=== PATIENT | female | born 1995 ===

== ENCOUNTER 2022-01-02 09:05 | Inpatient (IN) | payer OTHER ==
[2022-01-02] MEDS ORDERED: HOME MED LIST COMPLETE! XX SCH (12:40)
[2022-01-02] MEDS ORDERED: traZODone 50 MG TAB PO PRN (13:35)
[2022-01-02] MEDS ORDERED: MAALOX 30 ML SUSP *UDC PO PRN (13:35)
[2022-01-02] MEDS ORDERED: ACETAMINOPHEN TAB 650MG DOSE (2X325MG) PO PRN (13:35)
[2022-01-02] MEDS ORDERED: MOM 30ML SUSPENSION UDC PO PRN (13:35)
[2022-01-02 15:19] VITALS: BP 131/84
[2022-01-03 06:07] VITALS: BP 141/87
[2022-01-03] MEDS: VITAMIN D 1,000 INTERNATIONAL UNITS TABLET PO SCH (14:17)
[2022-01-03 18:00] VITALS: BP 133/77
[2022-01-03] MEDS: RAMELTEON 8 MG TAB (ROZEREM) PO SCH (21:53)
[2022-01-04 06:08] VITALS: BP 117/62
[2022-01-04] MEDS: VITAMIN D 1,000 INTERNATIONAL UNITS TABLET PO SCH (08:21)
[2022-01-04 11:10] LABS: CHOLESTEROL RISK RATIO 3.3 (<5)
[2022-01-04] MEDS ORDERED: CALCIUM CARBONATE 500 MG CHEW U/D PO PRN (11:25)
[2022-01-04 11:40] LABS: HEMOGLOBIN A1c 5.2 %
[2022-01-04] MEDS ORDERED: ALBUTEROL 90 MCG/ACT 8GM HFA INHALER INH PRN (12:20)
[2022-01-04 18:20] VITALS: BP 120/74
[2022-01-04] MEDS ORDERED: traZODone 50 MG TAB PO SCH (21:00)
[2022-01-04] MEDS: RAMELTEON 8 MG TAB (ROZEREM) PO SCH (21:14)
[2022-01-04] MEDS: ARIPiprazole 10 MG TAB PO SCH (21:14)
[2022-01-05 07:17] VITALS: BP 148/73
[2022-01-05] MEDS: VITAMIN D 1,000 INTERNATIONAL UNITS TABLET PO SCH (08:33)
[2022-01-05 18:45] VITALS: BP 118/66
[2022-01-05] MEDS: ARIPiprazole 10 MG TAB PO SCH (20:53)
[2022-01-05] MEDS: traZODone 50 MG TAB PO SCH (20:54)
[2022-01-05] MEDS: RAMELTEON 8 MG TAB (ROZEREM) PO SCH (20:55)
[2022-01-06 06:22] VITALS: BP 122/79
[2022-01-06] MEDS: VITAMIN D 1,000 INTERNATIONAL UNITS TABLET PO SCH (08:12)
[2022-01-06 18:21] VITALS: BP 123/89
[2022-01-06] MEDS: ARIPiprazole 10 MG TAB PO SCH (20:55)
[2022-01-06] MEDS: RAMELTEON 8 MG TAB (ROZEREM) PO SCH (20:55)
[2022-01-06] MEDS: traZODone 50 MG TAB PO SCH (20:55)
[2022-01-07 06:16] VITALS: BP 110/57
[2022-01-07] MEDS: VITAMIN D 1,000 INTERNATIONAL UNITS TABLET PO SCH (08:29)
[2022-01-07] MEDS ORDERED: DOCUSATE SODIUM 100MG CAPSULE PO PRN (11:45)
[2022-01-07] MEDS: DOCUSATE SODIUM 100MG CAPSULE PO PRN (12:19)
[2022-01-07 16:41] VITALS: BP 106/75
[2022-01-07] MEDS: ARIPiprazole 10 MG TAB PO SCH (20:54)
[2022-01-07] MEDS: RAMELTEON 8 MG TAB (ROZEREM) PO SCH (20:54)
[2022-01-07] MEDS: traZODone 50 MG TAB PO SCH (20:54)
[2022-01-08 06:10] VITALS: BP 129/63
[2022-01-08] MEDS: VITAMIN D 1,000 INTERNATIONAL UNITS TABLET PO SCH (08:07)
[2022-01-08] MEDS: DOCUSATE SODIUM 100MG CAPSULE PO PRN (08:08)
[2022-01-08] MEDS ORDERED: TRAZ-252 PO ×2 (10:14→11:55)
[2022-01-08] MEDS ORDERED: RAME8TAB2 PO ×2 (10:14→11:55)
[2022-01-08] MEDS ORDERED: ABIL10TA9 PO ×2 (10:14→11:55)
== END 2022-01-08 12:51 | disposition home or self-care (01) | DRG 753 ==
LOC: M ED 09:05 → M ED INP 13:34 → M PSY 15:17
PROVIDERS: ADMIT Student in an Organized Health Care Education/Training Program; ATTEND Student in an Organized Health Care Education/Training Program
DX: F31.9 Bipolar disorder, unspecified (principal); R45.851 Suicidal ideations; Z91.51 Personal history of suicidal behavior; F60.3 Borderline personality disorder; F12.10 Cannabis abuse, uncomplicated; F17.290 Nicotine dependence, other tobacco product, uncomplicated; E66.9 Obesity, unspecified; F17.210 Nicotine dependence, cigarettes, uncomplicated; J45.909 Unspecified asthma, uncomplicated; F60.81 Narcissistic personality disorder; Z56.4 Discord with boss and workmates